=== PATIENT | male | born 1950 | race Caucasian/White ===

== ENCOUNTER 2016-09-15 11:12 | Emergency (ER) | payer OTHER, BC ==
[~2016-09-15] VITALS: Ht 175.3 cm; Wt 119.2 kg
[2016-09-15] MEDS ORDERED: ASPIRIN325 MG PO (11:56)
[2016-09-15] MEDS ORDERED: PLAVIX75 MG PO (11:57)
[2016-09-15] MEDS ORDERED: LISINOPRIL10 MG PO (11:57)
[2016-09-15] MEDS ORDERED: LIPITOR20 MG PO (11:58)
[2016-09-15] MEDS ORDERED: METOPROLOL TART50 MG PO (11:58)
[2016-09-15] MEDS ORDERED: LORTAB 5-325 M1 EACH PO (11:59)
[2016-09-15] MEDS ORDERED: PERCOCET 5/31 TABLET PO (14:04)
[2016-09-15] MEDS ORDERED: ZOFRAN ODT8 MG PO (14:15)
[2016-09-15 14:21] VITALS: BP 00/0
== END 2016-09-15 14:35 | disposition home or self-care (01) ==
LOC: EME 11:12
DX: S22.41XA Multiple fractures of ribs, right side, initial encounter for closed fracture (principal); R07.89 Other chest pain; E78.5 Hyperlipidemia, unspecified; I25.2 Old myocardial infarction; I10 Essential (primary) hypertension; W00.0XXD Fall on same level due to ice and snow, subsequent encounter
CPT/HCPCS: 71020; 99281; 99284; J2270